=== PATIENT | male | born 1970 | race Caucasian/White ===

== ENCOUNTER 2020-10-31 16:45 | Emergency (ER) | payer BC, SELFPAY ==
--- NOTE | ~2020-10-31 | XR_ITS ---
XR chest 2V 10/31/2020 17:31 Indication: Cough and wheezing Procedure: 2 view chest Comparison: 02/23/2018 Findings: Heart size normal. Nodular density present in the left lower lobe. Follow-up CT chest recom mended. No focal pneumonia, pleural effusion or pneumothorax. Impression: 1: New nodular density left lower lobe. Follow-up CT chest recommended. Reviewed, dictated and finalized at location A. Impression: 1: New nodular density left lower lobe. Follow-up CT chest recommended.
--- NOTE | 2020-10-31 17:01 | ED.GENADULT ---
HPI - General Adult General Chief complaint: Upper Respiratory Infection Stated complaint: Congestion Time Seen by Provider: 10/31/20 17:03 Source: patient Mode of arrival: ambulatory Limitations: no limitations History of Present Illness HPI narrative: 49-year-old male patient presents to the [facility] with complaints of cold symptoms and chest congestion x4 days. Patient states he is fully vaccinated against Covid. Patient denies coming in contact with anybody that has been positive for Covid that he is aware of. 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 Patient states he has had some sinus pressure in his head, congestion, runny nose, sore throat and a slight cough. Patient feels like he is wheezing and has a rattle in his lungs is concerned about pneumonia. Related Data Allergies Allergy/AdvReac Type Severity Reaction Status Date / Time No Known Allergies Allergy Verified 10/31/20 17:02 Review of Systems Review of Systems: CONSTITUTIONAL: Denies fever, chills, or sweats. EYES: Denies visual changes, redness, or discharge. ENT: Positive rhinorrhea, congestion, sore throat, denies otalgia. CARDIOVASCULAR: Denies chest pain, palpitations, or edema. RESPIRATORY: Positive productive cough, denies dyspnea. GASTROINTESTINAL: Denies abdominal pain, nausea, vomiting, or diarrhea. GENITOURINARY: Denies dysuria or hematuria. SKIN: Denies rash or itching. MUSCULOSKELETAL: Denies back pain, joint pain, or myalgia. NEUROLOGIC: Denies headache, numbness, or weakness. PSYCHIATRIC: Denies anxiety or depression. PMFSH Surgical History Surgical History (Updated 10/31/20 @ 17:16 by JUNIOR Dorman) History of hernia surgery With mesh Family History Family History Father Family history of diabetes mellitus in first degree relative Social History Social History Smoking status: Never smoker Gender identity (if verbalized by the patient): Male Comments At the time of my signature I agree with nursing past medical history, surgical, social, and family history. There is no relevant family history pertinent to the presenting complaint. Exam Narrative: GENERAL: Well-appearing, well-nourished, and in no acute distress. HEAD: Normocephalic, atraumatic. EYES: PERRLA and EOMI. ENT: Nares clear, no rhinorrhea or epistaxis. Mucous membranes moist. Posterior pharynx does have some postnasal drip noted. Bilateral TMs are slightly cloudy with possible fluid behind the TMs. NECK: Supple. No lymphadenopathy CHEST: Patient has inspiratory wheezing noted to left upper and lower lobes. No respiratory distress. Patient able talk in clear complete sentences. HEART: Regular rate and rhythm. No murmur heard. Normal peripheral pulses. ABDOMEN: Soft, nontender, nondistended, normal active bowel sounds. EXTREMITIES: Normal range of motion. No edema. SKIN: Warm, dry, no rash. NEURO: No focal deficits. Alert and oriented x3. Course Reevaluation(s) Reevaluation #1: Reevaluated patient after x-ray resulted. Notified patient that the x-ray does show a lower left nodule that the radiologist does recommend that he follow-up with CT. Discussed with patient that we will go ahead and discharge him home with oral steroids as well as an inhaler and I do recommend that he follow-up with his PCP. Patient does not have a PCP at this time however we did go ahead and refer him to Dr. Laurent who is technician telecommunication systems for medicine. It is recommended that he call Dr. Laurent tomorrow for follow-up for an outpatient CT scan. Discussed with patient we will also do a PCR Covid on him and I would recommend that he stay out of work until the Covid test results. Date: 10/31/20 Time: 18:18 Vital Signs Vital signs: Vital Signs Temperature 36.7 C 10/31/20 17:07 Pulse Rate 107 H 10/31/20 17:07 Respiratory Rate 18 10/31/20 17:07 Blood Pressure 139/95 H 10/31/20 17
[2020-10-31 17:07] VITALS: BP 139/95; PULSE 107; RESP 18; TEMP 36.7; O2SAT 96
[2020-11-02 20:46] LABS: SARS-CoV-2 RNA PCR Negative
== END 2020-10-31 18:24 | disposition home or self-care (01) ==
PROVIDERS: Emergency Provider Nurse Practitioner Family
DX: J06.9 Acute upper respiratory infection, unspecified (principal); R93.89 Abnormal findings on diagnostic imaging of other specified body structures; Z20.822 Contact with and (suspected) exposure to COVID-19
CPT/HCPCS: 71046; 87426; 99213; C9803; G0463; U0003; U0005

== ENCOUNTER 2020-11-05 15:59 | Outpatient (CLI) | payer BC, SELFPAY ==
--- NOTE | ~2020-11-05 | CT_ITS ---
EXAMINATION: CT brain wo con DATE: 11/05/2020 16:54 INDICATION: History of brain abnormality TECHNIQUE: Computed tomography (CT) of the head was performed without intravenous contrast. The mA wa s adjusted according to patient size. Iterative reconstruction technique was employed. Exam dose: 60 5.33 mGy-cm total exam DLP. COMPARISON: None FINDINGS: No intracranial mass lesion or hemorrhage or cerebrovascular accident is detected. Normal ventricular size. No subdural or epidural hematoma. No fracture or bone destruction of the cranial vault. Included mastoid air cells and paranasal sinuse s are normally developed and aerated. IMPRESSION: No significant abnormality Reviewed, dictated and finalized at Location [facility]. Reviewed, dictated and finalized at location A. IMPRESSION: No significant abnormality
--- NOTE | ~2020-11-05 | CT_ITS ---
EXAMINATION: CT diagnostic chest wo con DATE: 11/05/2020 16:54 INDICATION: Left-sided chest pain TECHNIQUE: Computed tomography (CT) of the chest was performed without intravenous contrast. The dose -length product was 383.61 mGy-cm. Automated exposure control and iterative reconstruction technique were employed. COMPARISON: None FINDINGS: No significant pleural or pericardial effusion. Heart size normal. No thoracic lymphadenopa thy. No focal airspace disease. No endobronchial lesions. Left lower lobe atelectasis. No suspicious pulmonary nodules or masses. The upper abdomen is unremarkable. Mild thoracic spondylosis, within nor mal limits for age. Small sclerotic lesion of L1, likely bone island. IMPRESSION: 1. No acute cardiopulmonary disease. Reviewed, dictated and finalized at location A.
== END 2020-11-05 16:00 | disposition home or self-care (01) ==
LOC: ANHIMG 16:12
PROVIDERS: PCP Emergency Medicine; Visit Provider Emergency Medicine
DX: R91.1 Solitary pulmonary nodule (principal)
CPT/HCPCS: 70450; 71250